=== PATIENT | male | born 1950 | race Caucasian/White ===

== ENCOUNTER 2016-12-22 23:08 | Emergency (ER) | payer BC ==
[2016-12-22 23:30] LABS: BASO % 0.1 % (0-6); EOS % 1.6 % (0-6); GRAN % 61.9 % (47-80); HEMATOCRIT 41.8 % (42.0-52.0); HEMOGLOBIN 14.5 gm/dl (14.0-18.0); LYMPH % 30.6 % (16-45); MEAN CELL VOLUME 92.7 fl (81-97); MEAN CORPUSCULAR HEMOGLOBIN 32.2 pg (27-33); MEAN CORPUSCULAR HGB CONC 34.7 g/dl (32-36); MEAN PLATELET VOLUME 8.8 fl (7.4-10.4); MONO % 5.8 % (0-9); PLATELET COUNT 238 K/uL (130-400); RED BLOOD COUNT 4.51 M/uL (4.40-5.70); RED CELL DISTRIBUTION WIDTH 12.7 % (11.5-14.5); WHITE BLOOD COUNT W/O DIFF 7.3 K/uL (4.2-12.2)
--- NOTE | 2016-12-22 23:33 | Emergency Department Record ---
History of Present Illness - General Stated Complaint: CHEST PAIN Time Seen by Provider: 12/22/16 23:19 Source: Patient Mode of Arrival: Ambulatory Limitations: No limitations - History of Present Illness Initial Comments: 66 yo male presents with a dizzy feeling with mid sternal chest pressure that started upon waking at 8:30-9pm after a nap prior to work. The patient became nauseated and vomited. The lightheaded dizzy feeling quickly resolved but the heaviness in the chest continued. He has a history of ascending aneuarysm, thoracic aneurysm and valve repair three years ago at [facility]. His last stress test was about 8 months ago with [facility] Dr Mcclendon. He as been in his usual state of health the last few weeks. The pain does not go to his back. MD Complaint: Chest pain, Other -: Hour(s) (2) Pain Location: Substernal Pain Radiation: None Severity: Moderate Quality: Heaviness Consistency: Constant Improves With: Nothing Worsens With: Nothing Anginal Symptoms: Diaphoresis, Nausea, Vomiting Treatments Prior to Arrival: None - Related Data Home Medications Medication Instructions Recorded Confirmed Last Taken Aspirin Chewable 81 mg PO DAILY 12/22/16 12/22/16 12/22/16 Atorvastatin Calcium 10 mg PO QPM 12/22/16 12/22/16 12/21/16 Cholecalciferol (Vitamin D3) 2,000 unit PO DAILY 12/22/16 12/22/16 12/22/16 [Vitamin D3] Multivitamin [Multi-Vitamin Daily] 1 each PO DAILY 12/22/16 12/22/16 12/22/16 Potassium Chloride [Potassium 1 tab PO DAILY 12/22/16 12/22/16 12/22/16 Chloride] Allergies Allergy/AdvReac Type Severity Reaction Status Date / Time No Known Drug Allergies Allergy Verified 12/22/16 23:42 Review of Systems Constitutional: Denies: Chills, Fever, Malaise, Weakness Eyes: Denies: Eye discharge ENT: Denies: Congestion, Throat pain Respiratory: Denies: Cough, Dyspnea, Hemoptysis, Stridor, Wheezes Cardiovascular: Reports: Chest pain. Denies: Arrhythmia, Dyspnea on exertion, Edema, Syncope Endocrine: Denies: Fatigue, Polydipsia, Polyuria Gastrointestinal: Reports: Nausea, Vomiting. Denies: Abdominal pain, Diarrhea Genitourinary: Denies: Dysuria, Frequency, Hematuria Musculoskeletal: Denies: Arthralgia, Back pain, Joint swelling, Myalgia, Neck pain Skin: Denies: Bruising, Change in color, Rash Neurological: Reports: Vertigo. Denies: Confusion, Headache, Tingling, Tremors , Weakness Psychiatric: Denies: Anxiety Hematological/Lymphatic: Denies: Blood Clots, Easy bleeding, Easy bruising, Swollen glands Physical Exam - General General Appearance: Alert, Oriented x3, Cooperative, No acute distress Limitations: No limitations - Head Head exam: Atraumatic, Normal inspection - Eye Eye exam: Normal appearance, PERRL. negative: Conjunctival injection, Periorbital swelling - ENT ENT exam: Normal exam, Mucous membranes moist Ear exam: Normal external inspection Nasal Exam: Normal inspection Mouth exam: Normal external inspection Teeth exam: Normal inspection Throat exam: Normal inspection - Neck Neck exam: Normal inspection, Full ROM. negative: Tenderness - Respiratory Respiratory exam: Normal lung sounds bilaterally. negative: Respiratory distress - Cardiovascular Cardiovascular Exam: Normal rhythm, Normal heart sounds, Bradycardia Peripheral Pulses: 2+: Radial (R), Radial (L) - GI/Abdominal GI/Abdominal exam: Soft. negative: Distended, Tenderness - Rectal Rectal exam: Deferred - exam: Deferred - Extremities Extremities exam: Normal inspection, Full ROM, Normal capillary refill. negative: Pedal edema, Tenderness - Back Back exam: Reports: Normal inspection, Full ROM. Denies: CVA tenderness (R), CVA tenderness (L), Muscle spasm, Paraspinal tenderness, Rash noted, Tenderness , Vertebral tenderness - Neurological Neurological exam: Alert, Normal gait, Oriented X3, Reflexes normal - Psychiatric Psychiatric exam: Normal affect, Normal mood - Skin Skin exam: Dry, Intact, Normal color, Warm Course - Reevaluation(s) Reevaluation #1: EKG 23:15 Sinus Bradycardia with a rate of 43, intervals QTc 428, axis is left, ST no acute elevation or depression. No old EKG on our EMR. 12/22/16 23:34 Reevaluation #2: No acute changes of the CBC The CMP normal except K of 2.9 Enzymes pending. 12/22/16 23:49 Reevaluation #3: Cardiac Enxymes are negative [facility] records obtained 07/13/13 thoracic aneurysm without rupture, S/P AVR by [facility] Procedure, thoracic aorta graft, 07/04/13 Cath normal coronaries. 12/23/16 00:09 One Call Contacted to discuss with [facility] monotype machinist. Dr George is monotype machinist for [facility] I LYUBOV George of [facility]. He requests a CTA of the chest given the aneurysm history and he will accept as a transfer to [facility] 12/23/16 00:23 12/23/16 00:30 Reevaluation #4: The [facility] CT scan result was reviewed. It was read as no acute process or findings. No changes of the heart, post op sites, or great vessels. The patient has a room at [facility]. 12/23/16 02:10 Reevaluation #5: The patient was informed about the small adrenal nodule that the radiologist recommends follow in the next year. He will follow this up with Dr Saavedra. 12/23/16 02:15 Medical Decision Making - Lab Data Result diagrams: 12/22/16 23:22 12/22/16 23:22 Disposition Disposition: Transfer Clinical Impression: Chest pain Qualifiers: Chest pain type: unspecified Qualified Code(s): R07.9 - Chest pain, unspecified Disposition: Acute Care Hospital Transfer Transfer To: [facility] Reason For Transfer: Chest pain , cardiology consult Accepting Physician: Dr George Time Discussed w/Accepting Physician: 02:11 Condition: (2) Stable Time of Disposition: 02:11
[2016-12-22 23:42] LABS: ALB/GLOB RATIO 1.3 (1.1-1.8); ALBUMIN 4.4 gm/dL (3.5-5.0); ALKALINE PHOSPHATASE 83 U/L (38-126); ALT/SGPT 35 U/L (21-72); ANION GAP 12.1 (7-16); AST/SGOT 29 U/L (17-59); BILIRUBIN,TOTAL 0.59 mg/dL (0.2-1.3); BLOOD UREA NITROGEN 19 mg/dL (9-20); CARBON DIOXIDE 26.9 mmol/L (22-30); CREATINE PHOSPHOKINASE 144 U/L (55-170); CREATININE 1.1 mg/dL (0.66-1.25); EST GLOMERULAR FILTRATION RATE > 60 ml/min; GLUCOSE,RANDOM 102 mg/dL (70-110); TOTAL PROTEIN 7.8 gm/dL (6.3-8.2)
[2016-12-22 23:43] LABS: INR 0.92; PARTIAL THROMBOPLASTIN TIME 23.7 SECONDS (24.5-39.1); PROTHROMBIN TIME (PATIENT) 10.4 SECONDS (9.5-12.1)
[2016-12-22] MEDS ORDERED: ASPIRIN 81 MG CHEWABLE TABLET PO ONE (23:47)
[2016-12-22] MEDS ORDERED: POTASSIUM CHLORIDE 20 MEQ TABLET PO ONE (23:48)
[2016-12-22 23:54] LABS: TROPONIN I < 0.012 ng/mL (0.00-0.034)
[2016-12-23 00:07] LABS: CKMB 1.7 ug/L (0-6)
== END 2016-12-23 02:25 | disposition short-term general hospital (02) ==
LOC: ER 23:08
DX: R07.2 Precordial pain (principal); R42 Dizziness and giddiness; R11.2 Nausea with vomiting, unspecified
CPT/HCPCS: 99285; 99284; 82550; 85025; 85730; 85610; 82553; 84484; 80053; 71010; 71275; 74175; 93005; 93010; Q9967

== ENCOUNTER 2017-09-30 08:55 | Day surgery (SDC) | payer BC ==
[2017-09-30] MEDS ORDERED: LIDOCAINE 2% MDV (20MG/ML) 20ML VIAL IV ONE (08:56)
[2017-09-30] MEDS ORDERED: PROPOFOL 10 MG/ML VIAL IV ONE (08:56)
--- NOTE | 2017-10-03 09:10 | Operative Note ---
DATE OF SURGERY: 09/30/2017 SURGEON: Karlee Dorsey MD OPERATION: COLONOSCOPY. INDICATIONS: This is a 67-year-old male with average risk for colorectal cancer who presented for screening colonoscopy. POSTOPERATIVE DIAGNOSIS: Poor bowel preparation, cannot exclude any significant lesions. ANESTHESIA: Sedation is per Anesthesia. Pulse oximetry was monitored throughout the procedure to maintain O2 saturation of 90% or greater. Supplemental oxygen was administered via nasal cannula. Cardiac and vital signs were monitored throughout the duration of the procedure, and they were stable. The procedure of colonoscopy and risks and alternatives of the procedure, including the risk of bleeding and perforation, among others, were explained to the patient who voiced understanding and agreed to have the procedure done. Physical examination was performed, and the patient was found stable for sedation. PROCEDURE: The patient was placed in the left lateral position. Sedation was initiated. A digital rectal exam was performed and showed some mild external hemorrhoids with no palpable rectal masses. An Olympus PCF-180AL colonoscope was then inserted into the rectum under direct visualization. It was advanced to the cecum without difficulty. The ileocecal valve and appendiceal orifice were identified and photographed. The colonic mucosa was carefully examined upon introduction of the colonoscope. The bowel preparation was poor with solid stool debris in the sigmoid, descending, transverse, and ascending colon as well as the cecum. Cannot exclude any significant lesions. The colonoscope was then withdrawn while carefully examining the colonic mucosal surfaces. Attempts at irrigation were futile. In the rectum, retroflexion was performed and grade 1 internal hemorrhoids were noted. The colonoscope was then withdrawn and the procedure was terminated. The patient tolerated the procedure well without any immediate complications. He remained with stable vital signs and was transferred to the recovery room. RECOMMENDATIONS: 1. The patient will remain on a high-fiber diet. 2. The patient is to have a repeat colonoscopy with 2-day bowel preparation within a year. Thank you for allowing me to participate in the care of your patient. CC: Dr. Laura CHAVARRIA
== END 2017-09-30 10:45 | disposition home or self-care (01) ==
LOC: HOP 08:55
PROVIDERS: ATTEND Internal Medicine Gastroenterology
DX: Z12.11 Encounter for screening for malignant neoplasm of colon (principal); E78.00 Pure hypercholesterolemia, unspecified
CPT/HCPCS: 00812; G0121

== ENCOUNTER 2017-12-21 02:19 | Emergency (ER) | payer BC, OTHER ==
[2017-12-21] MEDS ORDERED: Diph,Pert(Acell),Tet Vac 0.5 ML SYR IM ONE (02:23)
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
[2017-12-21] MEDS ORDERED: TOPICAL LIDOCAINE W/ EPI 5 ML TOP ONE (02:47)
[2017-12-21] MEDS ORDERED: ACETAMINOPHEN 500 MG TABLET PO ONE (02:47)
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
== END 2017-12-21 04:40 | disposition home or self-care (01) ==
LOC: ER 02:19
DX: S01.01XA Laceration without foreign body of scalp, initial encounter (principal); W40.8XXA Explosion of other specified explosive materials, initial encounter; Y92.63 Factory as the place of occurrence of the external cause; Y99.0 Civilian activity done for income or pay; Z95.2 Presence of prosthetic heart valve; Z87.891 Personal history of nicotine dependence; Z85.46 Personal history of malignant neoplasm of prostate
CPT/HCPCS: 12002; 70450; 90715; 96372; 99284

== ENCOUNTER 2019-01-23 03:03 | Emergency (ER) | payer BC, OTHER ==
--- NOTE | 2019-01-23 03:07 | Emergency Department Record ---
History of Present Illness - General Chief complaint: Extremity Problem Stated complaint: INJURY AT WORK Time Seen by Provider: 01/23/19 03:07 Source: Patient Mode of Arrival: Ambulatory Limitations: No limitations - History of Present Illness Initial comments: pt fell 24hrs ago at work injuring his l hand Complaint: Extremity pain, Extremity swelling Location: Left, Hand Consistency: Constant Worsens with: Palpation - Related Data Allergies Allergy/AdvReac Type Severity Reaction Status Date / Time No Known Drug Allergies Allergy Verified 01/23/19 03:15 Review of Systems Reviewed: No additional complaints except as noted below Constitutional: Reports: As per HPI. Denies: Chills, Fever, Malaise, Night sweats, Weakness, Weight change Eyes: Reports: As per HPI. Denies: Eye discharge, Eye pain, Photophobia, Vision change ENT: Reports: As per HPI. Denies: Congestion, Dental pain, Ear pain, Epistaxis, Hearing loss, Throat pain Respiratory: Reports: As per HPI. Denies: Cough, Dyspnea, Hemoptysis, Stridor, Wheezes Cardiovascular: Reports: As per HPI. Denies: Arrhythmia, Chest pain, Dyspnea on exertion, Edema, Murmurs, Orthopnea, Palpitations, Paroxysmal nocturnal dyspnea, Rheumatic Fever, Syncope Endocrine: Reports: As per HPI. Denies: Fatigue, Heat or cold intolerance, Polydipsia, Polyuria Gastrointestinal: Reports: As per HPI. Denies: Abdominal pain, Constipation, Diarrhea, Hematemesis, Hematochezia, Melena, Nausea, Vomiting Genitourinary: Reports: As per HPI. Denies: Dysuria, Frequency, Hematuria, Incontinence, Retention, Testicular pain, Testicular mass, Urgency Musculoskeletal: Reports: As per HPI. Denies: Arthralgia, Back pain, Gout, Joint swelling, Myalgia, Neck pain Skin: Reports: As per HPI. Denies: Bruising, Change in color, Change in hair/nails, Lesions, Pruritus, Rash Neurological: Reports: As per HPI. Denies: Abnormal gait, Confusion, Headache, Numbness, Paresthesias, Seizure, Tingling, Tremors, Vertigo, Weakness Psychiatric: Reports: As per HPI. Denies: Anxiety, Auditory hallucinations, Depression, Homicidal thoughts, Suicidal thoughts, Visual hallucinations Hematological/Lymphatic: Reports: As per HPI. Denies: Anemia, Blood Clots, Easy bleeding, Easy bruising, Swollen glands Past Medical History - SOCIAL HISTORY Smoking Status: Former smoker Alcohol Use Comment: has not drank in 7 years - RESPIRATORY Hx Respiratory Disorders: No - CARDIOVASCULAR Hx Cardio Disorders: Yes Hx Cardiac Cath: Yes (2015) Comment:: high cholesterol - NEURO Hx Neuro Disorders: No Comment:: vertigo 6-8 months ago, seen ENT, unkown cause. - GI Hx GI Disorders: No - Hx Genitourinary Disorders: Yes Hx Prostate Problems: Yes ([place]) - ENDOCRINE Hx Endocrine Disorders: No - MUSCULOSKELETAL Hx Musculoskeletal Disorders: Yes Hx Arthritis: Yes - PSYCH Hx Psych Problems: No - HEMATOLOGY/ONCOLOGY Hx Hematology/Oncology Disorders: Yes Hx Cancer: Yes (Prostate) Hx Chemotherapy: No Hx Radiation Therapy: No Family Medical History Hx Diabetes: Mother Hx Heart Disease: Father Physical Exam - General General Appearance: Alert, Oriented x3, Cooperative, No acute distress - Head Head exam: Normal inspection - Eye Eye exam: Normal appearance, PERRL, EOMI Pupils: Normal accommodation - ENT ENT exam: Normal exam, Mucous membranes moist, Normal external ear exam, Normal orophraynx Ear exam: Normal external inspection. negative: External canal tenderness Nasal Exam: Normal inspection. negative: Discharge, Sinus tenderness Mouth exam: Normal external inspection, Tongue normal Teeth exam: Normal inspection. negative: Dental caries Throat exam: Normal inspection. negative: Tonsillar erythema, Tonsillar exudate - Neck Neck exam: Normal inspection, Full ROM. negative: Tenderness - Respiratory Respiratory exam: Normal lung sounds bilaterally. negative: Respiratory distress - Cardiovascular Cardiovascular Exam: Regular rate, Normal rhythm, Normal heart sounds - GI/Abdominal GI/Abdominal exam: Soft, Normal bowel sounds. negative: Tenderness - Rectal Rectal exam: Deferred - exam: Deferred - Extremities Extremities exam: Normal capillary refill, Tenderness. negative: Normal inspection, Full ROM Image of Hand: 1 - swelling, tenderness, erythema - Back Back exam: Reports: Normal inspection, Full ROM. Denies: Muscle spasm, Rash noted, Tenderness - Neurological Neurological exam: Alert, Normal gait, Oriented X3, Reflexes normal - Psychiatric Psychiatric exam: Normal affect, Normal mood - Skin Skin exam: Dry, Intact, Normal color, Warm Course - Reevaluation(s) Reevaluation #1: 01/23/19 04:38 reduction attempted with inadequate results Disposition Disposition: Discharge Clinical Impression: Closed dislocation of MCP joint of hand Qualifiers: Encounter type: initial encounter Qualified Code(s): S63.269A - Dislocation of metacarpophalangeal joint of unspecified finger, initial encounter Dislocation closed, finger Qualifiers: Encounter type: initial encounter Qualified Code(s): S63.259A - Unspecified dislocation of unspecified finger, initial encounter Disposition: Home, Self-Care Condition: (1) Good Instructions: Finger Dislocation (ED) Additional Instructions: follow up with dr patricia. ice and elevate. return sooner if worse. Referrals: Maria Ines Patricia [MEDICAL DOCTOR] - Forms: Patient Portal Access, Return to Work/School Quality - Quality Measures Quality Measures: N/A - Blood Pressure Screening Does Patient Have Any of the Following: No Blood Pressure Classification: Hypertensive Reading Systolic Measurement: 148 Diastolic Measurement: 90 Screening for High Blood Pressure: < First Hypertensive BP, F/U Documented > [G8950] First Hypertensive Follow-up Interventions: Follow-up with rescreen GT 1 day and LT 4 weeks.
[2019-01-23 03:13] LABS: AMPHETAMINE SCREEN URINE NOT DETECTED; BARBITURATE SCREEN URINE NOT DETECTED; BENZODIAZEPINE SCREEN URINE NOT DETECTED; COCAINE SCREEN URINE NOT DETECTED; METHADONE SCREEN URINE NOT DETECTED; METHAMPHETAMINE SCREEN NOT DETECTED; OPIATE SCREEN URINE NOT DETECTED; OXYCODONE SCREEN URINE NOT DETECTED; PHENCYCLIDINE SCREEN URINE NOT DETECTED; PROPOXYPHENE SCREEN URINE NOT DETECTED; THC SCREEN URINE NOT DETECTED; TRICYCLIC ANTIDEPRESSANT SCRN NOT DETECTED
--- NOTE | 2019-01-24 05:58 | RADIOLOGY REPORT ---
EXAM: HAND, LEFT 3 VIEWS HISTORY: PAIN POST FALL WITH SOFT TISSUE SWELLING. PAIN IN PROXIMAL ASPECT OF THIRD FINGER. TECHNIQUE: Three views of the left hand. COMPARISON: None. ENCOUNTER: Initial. FINDINGS: No acute fracture is identified. There is possible volar subluxation/dislocation of the base of the third proximal phalanx relative to the third metacarpal head. No other evidence of subluxation/dislocation. There are mild osteoarthritic changes scattered within the interphalangeal joints. There are moderate osteoarthritic changes of the first and second carpometacarpal joints and mild to moderate degenerative changes of scaphotrapezium and scaphotrapezoid joints. There are mild degenerative changes of the distal radial ulnar joint and likely the third carpometacarpal joint. There is dorsal soft tissue swelling centered at the second-third metacarpal levels. IMPRESSION: 1. NO DEFINITE ACUTE FRACTURE. 2. APPARENT VOLAR SUBLUXATION/DISLOCATION OF THE BASE OF THE THIRD PROXIMAL PHALANX RELATIVE TO THE THIRD METACARPAL HEAD. 3. OSTEOARTHRITIC CHANGES. 4. DORSAL SOFT TISSUE SWELLING CENTERED AT THE SECOND-THIRD METACARPAL LEVEL. JOB NUMBER: [id number] [facility]
== END 2019-01-23 05:05 | disposition home or self-care (01) ==
LOC: ER 03:03
DX: S63.213A Subluxation of metacarpophalangeal joint of left middle finger, initial encounter (principal); W01.198A Fall on same level from slipping, tripping and stumbling with subsequent striking against other object, initial encounter; Y92.63 Factory as the place of occurrence of the external cause; Y99.0 Civilian activity done for income or pay; Z87.891 Personal history of nicotine dependence
CPT/HCPCS: 26700; 80305; 99283; 99284